=== PATIENT | male | born 1990 | race Caucasian/White ===

== ENCOUNTER 2022-01-30 14:48 | Emergency (ER) | payer OTHER, SELFPAY ==
--- NOTE | ~2022-01-30 | XR_ITS ---
EXAMINATION: [id number] DATE: 01/30/2022 15:20 INDICATION: Right rib pain. Fall. TECHNIQUE: A frontal view of the chest and 2 views on 3 radiographs of the right ribs were obtained. COMPARISON: None. FINDINGS: The chest demonstrates clear lungs without pneumonia, pleural effusion, or pneumothorax. Th e heart size is normal. There are old healed fractures of right third and fourth ribs. IMPRESSION: 1. No acute rib fracture. Reviewed, dictated and finalized at location A. ECT SCHEDULER IMPRESSION: 1. No acute rib fracture.
[2022-01-30 14:58] VITALS: BP 149/92; PULSE 94; RESP 16; TEMP 36.6; O2SAT 100
--- NOTE | 2022-01-30 15:29 | ED.FALL ---
HPI - Fall General Chief Complaint: Fall Stated Complaint: Right rip pain Time Seen by Provider: 01/30/22 15:29 Source: patient Mode of arrival: ambulatory Limitations: no limitations History of Present Illness HPI Narrative: 31-year-old male presents with right rib chest wall pain. Today he was sitting on deck and stood up from chair, right leg went through rotten wood and he fell through the deck. Patient states that he hit his right arm and initially had right arm pain but that has since resolved. Jackson like he was okay but then later bent down to pet his dog and had pain to his right rib cage. Patient denies any other injury, skin intact no abrasions or lacerations. Did not take any pain medication prior to arrival. Concerned that me he may have a rib fracture although he is unsure if he hit his rib cage on the deck. All systems reviewed and negative except as noted above. Related Data Allergies Allergy/AdvReac Type Severity Reaction Status Date / Time No Known Allergies Allergy Mild Verified 11/08/11 18:44 Review of Systems Review of Systems: CONSTITUTIONAL: Denies fever, chills, or sweats. EYES: Denies visual changes, redness, or discharge. ENT: Denies rhinorrhea, congestion, sore throat, or otalgia. CARDIOVASCULAR: Denies chest pain, palpitations, or edema. RESPIRATORY: Denies cough or dyspnea. GASTROINTESTINAL: Denies abdominal pain, nausea, vomiting, or diarrhea. GENITOURINARY: Denies dysuria or hematuria. SKIN: Denies rash or itching. MUSCULOSKELETAL: Denies back pain, joint pain, or myalgia. Right rib cage tenderness. NEUROLOGIC: Denies headache, numbness, or weakness. PSYCHIATRIC: Denies anxiety or depression. All other systems reviewed are negative, except as documented in HPI. PMFSH Comments At time of signature, agree with nursing past medical, surgical, social and family history. There is no relevant family history pertinent to the presenting complaint. Exam Narrative: GENERAL: This is a well-nourished, well-developed patient, in no apparent distress. HEAD: normocephalic, atraumatic. EYES: PERRL. Sclera clear/white. Vision is grossly intact. EARS: External ears normal, auditory canals clear and without drainage, TMs normal without perforation. Hearing grossly intact. NOSE: External nose normal with no obvious nasal discharge, nares without redness, no rhinorrhea. THROAT: Mucous membranes moist, posterior pharynx clear. NECK: Neck supple, non-tender without lymphadenopathy, masses or thyromegaly. CHEST: Anterior rib and chest wall tenderness just below right breast. CARDIOVASCULAR: Regular rate and rhythm without murmurs, gallops, or rubs. RESPIRATORY: Clear to auscultation. Breath sounds equal bilaterally. No wheezes, rales, or rhonchi. GASTROINTESTINAL: Abdomen soft, non-tender, nondistended. Bowel sounds are active. No hepato-splenomegaly, or palpable masses. No guarding. SKIN: warm, Dry, intact with no suspicious lesions or rash, good texture and turgor. NEURO: awake, alert, and oriented to person, place and time. There were no obvious focal neurologic abnormalities. EXTREMITIES: No joint tenderness, effusion, or edema noted. No calf tenderness. Negative Homans sign bilaterally. BACK: Nontender without deformity. No CVA tenderness. Course Course Level of Care: Express Care Visit Vital Signs Vital signs: Vital Signs Temperature 36.6 C 01/30/22 14:58 Pulse Rate 94 01/30/22 14:58 Respiratory Rate 16 01/30/22 14:58 Blood Pressure 149/92 H 01/30/22 14:58 Pulse Oximetry 100 01/30/22 14:58 Temperature 36.6 C 01/30/22 14:58 Pulse Rate 94 01/30/22 14:58 Respiratory Rate 16 01/30/22 14:58 Blood Pressure 149/92 H 01/30/22 14:58 Pulse Oximetry 100 01/30/22 14:58 Reviewed MDM - Fall MDM Narrative Medical decision making narrative: Patient is aware of diagnosis, understands and agrees to treatment plan. Anticipatory guidance given. Patient agrees to follow-up as directed and
== END 2022-01-30 15:48 | disposition home or self-care (01) ==
PROVIDERS: Emergency Provider Nurse Practitioner Family
DX: S29.011A Strain of muscle and tendon of front wall of thorax, initial encounter (principal); W13.3XXA Fall through floor, initial encounter
CPT/HCPCS: 71101; 99213; G0463